=== PATIENT | female | born 1985 | race Caucasian/White ===

== ENCOUNTER 2016-09-24 12:07 | Emergency (ER) | payer OTHER ==
[~2016-09-24] VITALS: Ht 160 cm; Wt 68.0 kg
--- NOTE | 2016-09-24 12:23 | ED GENERAL ADULT ---
History of Present Illness General Chief Complaint: Nausea, Vomiting, Diarrhea Stated Complaint: N/V 24 HRS GAVE 09/05 Source: patient, family, old records Exam Limitations: no limitations Vital Signs & Intake/Output Vital Signs & Intake/Output Vital Signs Date Time Temp Pulse Resp B/P B/P Pulse O2 O2 Flow FiO2 Mean Ox Delivery Rate 09/24 1409 98.2 68 16 121/59 98 Room Air 09/24 1213 97.7 81 15 141/93 97 Room Air Room Air Allergies Coded Allergies: No Known Allergies (09/24/16) Reconcile Medications Lamotrigine (Lamictal) 25 MG TABLET 1 TAB PO BID ? DEPRESSION ( Reported) 1 TAB QAM/2 QPM Lorazepam (Ativan) (Unknown Strength) TABLET (Unknown Dose) PO BIDP PRN ANXIETY (Reported) Meclizine HCl 25 MG TABLET 1 TAB PO Q6P PRN DIZZINESS Ondansetron (Zofran Odt) 4 MG TAB.RAPDIS 1 TAB SL TID PRN NAUSEA Triage Note: PT TO ED FOR C/C OF NAUSEA AND VOMITING X 24 HOURS, DENIES DIARRHEA. RECENTLY GAVE ON 09/05 AND STARTED ON LAMICTAL AND ATIVAN FOR ANXIETY AND DEPRESSION. +GREEN VOMIT IN TRIAGE. Triage Nurses Notes Reviewed? yes : No Patient currently breastfeeds: No HPI: Patient is 2 weeks post vaginal delivery. There is no problem with the or the delivery. Patient is not currently breast-feeding. Patient was in her usual state of health until yesterday when she suddenly developed spinning dizziness and difficulty walking because she feels that she is "fall down every time she does walk. Positive nausea and vomiting. The symptoms continued sense. There is no diarrhea. There is no abdominal pain. There is no fevers or chills. She denies any tinnitus. Past History Travel History Traveled to [place] past 21 day No Medical History Any Pertinent Medical History? see below for history Neurological: NONE Psychiatric: anxiety, depression Blood Disorders: NONE Cancer(s): NONE Surgical History Surgical History: non-contributory Psychosocial History What is your primary language [place] Tobacco Use: Quit >30 days ago ETOH Use: denies use Illicit Drug Use: denies illicit drug use Family History Hx Contributory? No Review of Systems Review of Systems Constitutional: Reports: no symptoms. EENTM: Reports: no symptoms. Respiratory: Reports: no symptoms. Cardiovascular: Reports: no symptoms. GI: Reports: see HPI, nausea, vomiting. Genitourinary: Reports: no symptoms. Musculoskeletal: Reports: no symptoms. Skin: Reports: no symptoms. Neurological/Psychological: Reports: see HPI. Hematologic/Endocrine: Reports: no symptoms. Immunologic/Allergic: Reports: no symptoms. All Other Systems: Reviewed and Negative Physical Exam Physical Exam General Appearance: well developed/nourished, alert, awake, anxious, mild distress Head: atraumatic, normal appearance Eyes: Bilateral: PERRL, EOMI, other (+ NYSTAGMUS). Ears, Nose, Throat: normal pharynx, normal ENT inspection, hearing grossly normal Neck: normal inspection, supple, full range of motion Respiratory: normal breath sounds, chest non-tender, no respiratory distress, lungs clear Cardiovascular: regular rate/rhythm, normal peripheral pulses Gastrointestinal: normal bowel sounds, soft, non-tender, no organomegaly Back: normal inspection, normal range of motion Extremities: normal inspection, normal capillary refill, normal range of motion, no edema Neurologic/Psych: no motor/sensory deficits, awake, alert, oriented x 3, normal mood/affect, ATAXIC GAIT Skin: intact, normal color, warm/dry Lymphatic: no anterior cervical nuvia Core Measures ACS in differential dx? No CVA/TIA Diagnosis: No Severe Sepsis Present: No Septic Shock Present: No Progress Differential Diagnoses I considered the following diagnoses in my evaluation of the patient: [VERTIGO, UTI, ELECTROLYTE ABNORMALITY] Plan of Care: Orders Procedure Date/time Status Add-on Test (ER Only) 09/24 1430 Active CULTURE,URINE 09/24 1407 Active URINALYSIS 09/24 1223 Complete COMPREHENSIVE METABOLIC PANEL 09/24 1223 Complete CBC WITHOUT DIFFERENTIAL 09/24 1223 Complete Laboratory Tests 09/24/16 1407: Urinalysis LIGHT H, Urine Color YEL, Urine Clarity HAZY H, Urine pH 6.0, Ur Specific [place] 1.020, Urine Protein NEG, Urine Ketones 15 H, Urine Nitrite NEG, Urine Bilirubin NEG, Urine Urobilinogen 0.2, Ur Leukocyte Esterase SMALL H , Ur Microscopic SEDIMENT EXAMINED, Urine RBC 1-3, Urine WBC 15-25 H, Ur Epithelial Cells FEW, Urine Bacteria MOD H, Urine Mucus MANY H, Urine Hemoglobin SMALL H, Urine Glucose NEG 09/24/16 1241: Anion Gap 12, Estimated GFR > 60, BUN/Creatinine Ratio 17.1, Glucose 94, Calcium 9.9, Total Bilirubin 0.5, AST 52 H, ALT 48, Alkaline Phosphatase 131 H, Total Protein 7.3, Albumin 4.4, Globulin 2.9, Albumin/Globulin Ratio 1.5, CBC w Diff NO MAN DIFF REQ, RBC 4.94, MCV 77.5 L, MCH 24.7 L, RDW 16.3 H, MPV 8.1, Gran % 76.9 H, Lymphocytes % 18.0 L, Monocytes % 4.7, Eosinophils % 0.3, Basophils % 0.1, Absolute Granulocytes 8.2 H, Absolute Lymphocytes 1.9, Absolute Monocytes 0.5, Absolute Eosinophils 0, Absolute Basophils 0, PUBS MCHC 31.8 L Microbiology 09/24 1407 URINE ROUT: Urine Culture - RECD Initial ED EKG: none Comments: PT'S SYMPTOMS HAVE DECREASED AFTER THE ANTIVERT. PT NOW ABLE TO AMBULATE WITHOUT DIFFICULTY. LABS HAVE BEEN REVIEWED WITH THE PATINET AND QUESTIONS HAVE BEEN ANSWERED. Departure Departure Disposition: HOME OR SELF CARE Condition: Stable Clinical Impression Primary Impression: Vertigo Referrals: TG HARLEY,HOMERO Wade PATIENT HAS NO PRIMARY CARE DR (PCP/Family) Additional Instructions: TAKE ANTIVERT NEEDED FOR DIZZINESS TAKE ZOFRAN NEEDED FOR NAUSEA RETURN FOR ANY CONCERNS Departure Forms: Customer Survey General Discharge Information Prescriptions: Current Visit Scripts Meclizine HCl 1 TAB PO Q6P PRN DIZZINESS #30 TAB Ondansetron (Zofran Odt) 1 TAB SL TID PRN NAUSEA #10 TAB Critical Care Note Critical Care Note Critical Care Time: non-applicable
[2016-09-24] MEDS ORDERED: ATIVAN0.5 M1 PO (12:55)
[2016-09-24] MEDS ORDERED: LAMICTAL25 M1 PO (12:55)
[2016-09-24 12:56] LABS: ABSOLUTE BASOPHIL COUNT 0 /CUMM (0.0-0.2); ABSOLUTE EOSINOPHIL COUNT 0 /CUMM (0.0-0.7); ABSOLUTE GRANULOCYTE CT 8.2 /CUMM (1.4-6.5); ABSOLUTE LYMPH COUNT 1.9 /CUMM (1.2-3.4); ABSOLUTE MONOCYTE COUNT 0.5 /CUMM (0.10-0.60); BASOPHIL % 0.1 % (0.0-2.0); EOSINOPHIL % 0.3 % (0-5); GRANULOCYTE % 76.9 % (42.2-75.2); HEMATOCRIT 38.3 % (37-47); MEAN CORPUSCULAR HGB 24.7 PG (27.0-31.0); MEAN CORPUSCULAR HGB CONC 31.8 G/DL (33.0-37.0); MEAN CORPUSCULAR VOLUME 77.5 FL (81.0-99.0); MEAN PLATELET VOLUME 8.1 FL (7.4-10.4); PLATELET COUNT 386 /CUMM (130-400); RBC DISTRIBUTION WIDTH 16.3 % (11.5-14.5); RED BLOOD CELL CT 4.94 /CUMM (4.20-5.40); WHITE BLOOD CELL COUNT 10.6 /CUMM (4.8-10.8)
[2016-09-24 14:09] VITALS: BP 121/59
[2016-09-24] MEDS ORDERED: MECLIZINE HCL25 MG PO (14:35)
[2016-09-24] MEDS ORDERED: ZOFRAN ODT4 M1 SL (14:35)
== END 2016-09-24 14:48 ==
LOC: ERH 12:07
PROVIDERS: Emergency Medicine
DX: R42 Dizziness and giddiness (principal)
CPT/HCPCS: 81001; 87086; 96361; 96374; 96376; J2405